=== PATIENT | male | born 1950 | race Caucasian/White ===

== ENCOUNTER 2018-01-25 09:39 | Inpatient (IN) | payer OTHER ==
[2018-01-18 16:36] LABS: CLARITY,URINE CLOUDY (Clear); COLOR,URINE YELLOW (Yellow); GLUCOSE, URINE NEGATIVE (Neg); KETONES,URINE NEGATIVE (Neg); LEUKOCYTE ESTERASE ,URINE NEGATIVE (Neg); NITRITES, URINE NEGATIVE (Neg); OCCULT BLOOD,URINE TRACE-INTACT (Neg); PROTEIN,URINE 100 mg/dl (Neg); UROBILINOGEN,URINE 0.2 E.U/dL (0.2-1.0)
[2018-01-18 16:39] LABS: UA COLLECTION TYPE CLN CATCH MIDSTREAM
[2018-01-18 16:39] LABS: BASOPHILS % (AUTO) 0.1 % (0-1); EOSINOPHILS # (AUTO) 0.3 X10'3 (0-0.9); EOSINOPHILS % (AUTO) 3.4 % (0-6); LYMPHOCYTES # (AUTO) 0.7 X10'3 (1.1-4.8); LYMPHOCYTES % (AUTO) 7.4 % (21-51); MEAN CORPUSCULAR HEMOGLOBIN 28.7 PG (27.0-31.0); MEAN CORPUSCULAR HGB CONC 33.6 % (33.0-36.5); MEAN CORPUSCULAR VOLUME 85.7 FL (78-98); MEAN PLATELET VOLUME 7.8 FL (7.4-10.4); MONOCYTES # (AUTO) 0.7 X10'3 (0-0.9); MONOCYTES % (AUTO) 7.3 % (2-12); NEUTROPHILS # (AUTO) 8.2 X10'3 (1.8-7.7); NEUTROPHILS % (AUTO) 81.8 % (42-75); PRE OP HEMOGLOBIN 14.1 g/dL (14.0-17.9); PRE OP PLATELET COUNT 281 X10'3 (140-440); RED CELL DISTRIBUTION WIDTH 14.3 % (11.5-14.5)
[2018-01-18 16:41] LABS: PRE OP PROTIME 10.2 SECONDS (9.0-12.0)
[2018-01-18 16:45] LABS: ALBUMIN 3.3 G/DL (3.4-5.0); ALBUMIN/GLOBULIN RATIO 0.8 (1.1-1.5); ALKALINE PHOSPHATASE 109 IU/L (46-116); BLOOD UREA NITROGEN 15 MG/DL (7-18); BUN/CREATININE RATIO 10.3 (5.4-32.0); CALCIUM 8.9 MG/DL (8.5-10.1); CHLORIDE 101 MMOL/L (99-107); CREATININE 1.46 MG/DL (0.60-1.10); PRE OP ALT 20 U/L (30-65); PRE OP ANION GAP 8 (8-16); PRE OP AST 11 U/L (10-37); PRE OP BILIRUB, TOTAL 0.8 MG/DL (0.0-1.0); PRE OP GLUCOSE 114 MG/DL (70-104); PRE OP POTASSIUM 3.7 MMOL/L (3.4-5.1); PRE OP SODIUM 136 MMOL/L (135-145); TOTAL PROTEIN 7.6 G/DL (6.4-8.2); eGFR 48 ML/MIN
[2018-01-18 16:53] LABS: MUCUS STRANDS NONE SEEN /LPF (Neg); SQUAMOUS EPITHELIAL CELL,UR FEW /LPF (FEW)
[2018-01-18 16:54] LABS: BACTERIA,URINE NONE SEEN /HPF (Neg); RBC,URINE 0-2 /HPF (0-2); WBC,URINE 0-4 /HPF (0-4)
[2018-01-25] VITALS (25 sets, daily range): BP systolic 89–170; BP diastolic 61–94
[~2018-01-25] VITALS: Ht 167.6 cm; Wt 112.4 kg
[~2018-01-25 09:39] MED LIST: ACET-812 PO; AMLO10TA PO; ATOR40TA PO; IBUP-1984 PO; LISI1TAB11 PO; NAPR220C15 PO; OMEGA XL PO; PROBIOTIC PO; acetaminophen 325mg tablet PO ONE; cefazolin/dext.iso 2gm/50ml 50 ML IV ONE; celeCOXIB 100mg capsule PO ONE; famotidine 20mg tablet PO ONE; gabapentin 300mg capsule PO ONE; metoclopramide 5 mg/ml inj IV ONE; oxyCODONE SR 10mg (sust. release) tab PO ONE; ringers solution, lacted 1,000 ML IV SCH; tranexamic acid inj. 1,000 MG in normal saline 100ml IV soln 90 ML IV ONE; vancomycin inj 1,500 MG in normal saline 300ml IV soln IV ONE
[2018-01-25] MEDS ORDERED: epiNEPHrine 1 mg/ml inj ONE (10:37)
[2018-01-25] MEDS ORDERED: ROPIVAcaine 0.5% (5mg/ml) 30ml vial ONE (10:37)
[2018-01-25] MEDS ORDERED: vancomycin 1,000mg inj ONE ×4 (10:37→15:49)
[2018-01-25] MEDS ORDERED: ketorolac trometh. 30mg/ml inj. ONE (10:37)
[2018-01-25] MEDS ORDERED: cloNIDine hcl/PF 100mcg/ml inj ONE (10:37)
[2018-01-25] MEDS ORDERED: metoclopramide 5 mg/ml inj IV ONE (10:45)
[2018-01-25] MEDS ORDERED: fentaNYL /PF 50mcg/ml 5ml ampule ONE (10:55)
[2018-01-25] MEDS ORDERED: propofol inj 20 ML IV ONE ×7 (10:55→15:56)
[2018-01-25] MEDS ORDERED: MIDAZolam 5mg/5ml vial ONE (10:55)
[2018-01-25] MEDS ORDERED: rocuronium 10mg/ml inj IV ONE (10:56)
[2018-01-25] MEDS ORDERED: magnesium hydroxide 30ml (MOM) UD suspension PO PRN (11:30)
[2018-01-25] MEDS ORDERED: bisacodyl 10mg suppository rectal RC PRN (11:30)
[2018-01-25] MEDS ORDERED: diphenhydrAMINE 25mg capsule PO PRN (11:30)
[2018-01-25] MEDS ORDERED: HYDROmorphone inj. 0.5 MG/0.5 ML DISP.SYRIN IV PRN ×4 (11:30→13:05)
[2018-01-25] MEDS ORDERED: acetaminophen 325mg tablet PO PRN (11:30)
[2018-01-25] MEDS ORDERED: ondansetron/PF 4mg/2ml inj IV PRN ×3 (11:30→13:10)
[2018-01-25] MEDS ORDERED: morphine sulfate /PF 0.5 MG/ML 10mL ampul ONE (11:47)
[2018-01-25] MEDS ORDERED: metoclopramide 5 mg/ml inj ONE (12:30)
[2018-01-25] MEDS ORDERED: ondansetron/PF 4mg/2ml inj ONE (12:30)
[2018-01-25] MEDS ORDERED: propofol inj 40 ML IV ONE (12:32)
[2018-01-25] MEDS ORDERED: succinylcholine 20mg/ml inj IV ONE (12:32)
[2018-01-25] MEDS ORDERED: metoprolol tartrate 1mg/ml inj IV ONE ×2 (13:01→14:59)
[2018-01-25] MEDS ORDERED: acetaminophen 1,000mg/100ml IV 100 ML IV PRN (13:05)
[2018-01-25] MEDS ORDERED: fentaNYL/PF 50MCG/1 ML 2ML syringe IV PRN ×2 (13:05)
[2018-01-25] MEDS ORDERED: ringers solution, lacted 1,000 ML IV SCH (13:05)
[2018-01-25] MEDS ORDERED: diphenhydrAMINE 50 mg/ml inj IV PRN (13:10)
[2018-01-25] MEDS ORDERED: naloxone 2mg/2ml inj 2 MG in normal saline 500ml IV soln 498 ML IV PRN (13:10)
[2018-01-25] MEDS ORDERED: albumin (Human) 5% 250ml 250 ML IV ONE ×2 (14:37→16:02)
[2018-01-25] MEDS ORDERED: ceFAZolin 1000mg inj ONE (14:46)
[2018-01-25] MEDS ORDERED: BUPIVAcaine/PF 2.5 mg/ml (0.25%) 30ml vial ONE (15:17)
[2018-01-25] MEDS ORDERED: phenylephrine 10mg/ml inj IV ONE (15:17)
[2018-01-25] MEDS ORDERED: ePHEDrine 50MG/ML INJ. ONE (17:34)
[2018-01-25] MEDS ORDERED: insulin regular, human 10 units/0.1 ml syringe IV ONE (17:45)
[2018-01-25] MEDS ORDERED: albuterol 2.5 MG/3 ML nebule NEB ONE (17:45)
[2018-01-25] MEDS ORDERED: midazolam 2 mg/2 ml injection ONE (17:59)
[2018-01-25] MEDS: potassium cl 20mEq in 1/2 NS 1,000 ML IV SCH ×2 (18:59→20:30)
[2018-01-25] MEDS: oxyCODONE/APAP 10/325mg tablet PO SCH ×3 (19:01→20:00)
[2018-01-25] MEDS: gabapentin 300mg capsule PO SCH ×2 (19:02→20:31)
[2018-01-25] MEDS: cefazolin/dext.iso 2gm/50ml 50 ML IV SCH (19:02)
[2018-01-25] MEDS: celeCOXIB 100mg capsule PO SCH (20:00)
[2018-01-25] MEDS: ascorbic acid 500mg tablet PO SCH (20:00)
[2018-01-25] MEDS: sennosides 8.6mg tablet PO SCH (20:31)
[2018-01-26] MEDS: cefazolin/dext.iso 2gm/50ml 50 ML IV SCH (00:16)
[2018-01-26 01:52] VITALS: BP 123/72
[2018-01-26] MEDS: potassium cl 20mEq in 1/2 NS 1,000 ML IV SCH ×2 (02:33→21:51)
[2018-01-26] MEDS: oxyCODONE/APAP 10/325mg tablet PO SCH ×6 (04:38→20:30)
[2018-01-26 05:54] LABS: BASOPHILS % (AUTO) 0.1 % (0-1); EOSINOPHILS # (AUTO) 0.5 X10'3 (0-0.9); EOSINOPHILS % (AUTO) 3.6 % (0-6); HEMATOCRIT 30.4 % (42.0-52.0); HEMOGLOBIN 10.1 g/dl (14.0-17.9); LYMPHOCYTES # (AUTO) 0.7 X10'3 (1.1-4.8); LYMPHOCYTES % (AUTO) 5.1 % (21-51); MEAN CORPUSCULAR HEMOGLOBIN 28.7 PG (27.0-31.0); MEAN CORPUSCULAR HGB CONC 33.2 % (33.0-36.5); MEAN CORPUSCULAR VOLUME 86.5 FL (78-98); MEAN PLATELET VOLUME 7.4 FL (7.4-10.4); MONOCYTES # (AUTO) 0.9 X10'3 (0-0.9); MONOCYTES % (AUTO) 6.2 % (2-12); NEUTROPHILS # (AUTO) 11.8 X10'3 (1.8-7.7); PLATELET COUNT 362 X10'3 (140-440); RED BLOOD COUNT 3.51 X10'6 (4.70-6.10); RED CELL DISTRIBUTION WIDTH 15.2 % (11.5-14.5); WHITE BLOOD COUNT 13.9 X10'3 (4.5-11.0)
[2018-01-26 06:28] LABS: ANION GAP 13 (8-16); CHLORIDE 104 MMOL/L (99-107); POTASSIUM 3.6 MMOL/L (3.5-5.1); SODIUM 141 MMOL/L (135-145); TOTAL CARBON DIOXIDE 23.8 MMOL/L (24-32)
[2018-01-26 07:00] VITALS: BP 128/75
[2018-01-26] MEDS ORDERED: OMEGA 300 MG PO SCH (08:00)
[2018-01-26] MEDS: aspirin 325mg tablet PO SCH (08:24)
[2018-01-26] MEDS: ascorbic acid 500mg tablet PO SCH ×2 (08:24→20:30)
[2018-01-26] MEDS: celeCOXIB 100mg capsule PO SCH ×2 (08:24→20:30)
[2018-01-26] MEDS: amLODIPine 5mg tablet PO SCH (08:24)
[2018-01-26] MEDS: atorvastatin 20mg tablet PO SCH (08:24)
[2018-01-26] MEDS: lisinopril 20mg tablet PO SCH (08:24)
[2018-01-26] MEDS: lactobacillus rhamnosus 10,000 MMU CELLS/CAPSULE PO SCH ×2 (08:25→20:30)
[2018-01-26] MEDS: gabapentin 300mg capsule PO SCH ×3 (08:25→20:30)
[2018-01-26] MEDS: multivitamins, therapeutics tablet PO SCH (08:25)
[2018-01-26] MEDS: HYDROchlorothiazide 12.5mg capsule PO SCH (08:25)
[2018-01-26] MEDS: oxyCODONE/APAP 10/325mg tablet PO PRN ×2 (09:04→13:40)
[2018-01-26] MEDS: NUT.TX.GLUC.INTOLER,LAC-FR,REG (BOOST GLUCOSE CONTROL) 237 ML PO SCH ×2 (13:00→18:00)
[2018-01-26] MEDS ORDERED: normal saline 1000ml 1,000 ML IV ONE ×3 (15:40→23:35)
[2018-01-26 18:00] VITALS: BP 94/51
[2018-01-26] MEDS: sennosides 8.6mg tablet PO SCH (21:00)
[2018-01-26] MEDS ORDERED: albumin (Human) 5% 250 ML IV solution IV STA (21:51)
[2018-01-26 22:00] VITALS: BP 94/37
[2018-01-26 22:25] LABS: BASOPHILS % (AUTO) 0 % (0-1); EOSINOPHILS # (AUTO) 0.4 X10'3 (0-0.9); EOSINOPHILS % (AUTO) 1.8 % (0-6); HEMATOCRIT 30.3 % (42.0-52.0); HEMOGLOBIN 10.1 g/dl (14.0-17.9); LYMPHOCYTES # (AUTO) 1.1 X10'3 (1.1-4.8); MEAN CORPUSCULAR HEMOGLOBIN 28.8 PG (27.0-31.0); MEAN CORPUSCULAR HGB CONC 33.3 % (33.0-36.5); MEAN CORPUSCULAR VOLUME 86.5 FL (78-98); MEAN PLATELET VOLUME 7.7 FL (7.4-10.4); MONOCYTES # (AUTO) 1.1 X10'3 (0-0.9); MONOCYTES % (AUTO) 5.3 % (2-12); NEUTROPHILS # (AUTO) 18.7 X10'3 (1.8-7.7); NEUTROPHILS % (AUTO) 87.9 % (42-75); PLATELET COUNT 331 X10'3 (140-440); RED BLOOD COUNT 3.51 X10'6 (4.70-6.10); RED CELL DISTRIBUTION WIDTH 15.7 % (11.5-14.5); WHITE BLOOD COUNT 21.3 X10'3 (4.5-11.0)
[2018-01-26 22:49] LABS: ALANINE AMINOTRANSFERASE 61 U/L (12-78); ALBUMIN 2.3 G/DL (3.4-5.0); ALBUMIN/GLOBULIN RATIO 0.5 (1.1-1.5); ALKALINE PHOSPHATASE 156 IU/L (46-116); ANION GAP 18 (8-16); ASPARTATE AMINO TRANSFERASE 101 U/L (10-37); BILIRUBIN,TOTAL 0.9 MG/DL (0.1-1.0); BLOOD UREA NITROGEN 36 MG/DL (7-18); BUN/CREATININE RATIO 8.3 (5.4-32.0); CALCIUM 8.3 MG/DL (8.5-10.1); CHLORIDE 103 MMOL/L (99-107); CREATININE 4.32 MG/DL (0.60-1.10); GLUCOSE 127 MG/DL (70-104); POTASSIUM 4.4 MMOL/L (3.5-5.1); SODIUM 141 MMOL/L (135-145); TOTAL CARBON DIOXIDE 20.3 MMOL/L (24-32); TOTAL PROTEIN 6.6 G/DL (6.4-8.2); eGFR 14 ML/MIN
[2018-01-26] MEDS: normal saline 1000ml 1,000 ML IV SCH (22:49)
[2018-01-26 23:00] VITALS: BP 93/41
[2018-01-26] MEDS ORDERED: vancomycin/NS 1 GM ADD-VANTAGE 250 ML IV ONE (23:30)
[2018-01-26] MEDS ORDERED: LIDOcaine 2% 10ml TOPICAL JELLY (Urojet) MM ONE (23:55)
[2018-01-27] VITALS (26 sets, daily range): BP systolic 64–120; BP diastolic 43–81
[2018-01-27] MEDS ORDERED: piperacillin-tazo 2.25gm/50ml 50 ML IV ONE (01:22)
[2018-01-27] MEDS ORDERED: piperacillin-tazo 2.25gm/50ml 50 ML IV SCH (02:00)
[2018-01-27] MEDS: NORepinephrine 8mg/ 250ml NS 250 ML IV PRN ×2 (02:06→19:22)
[2018-01-27] MEDS: potassium cl 20mEq in 1/2 NS 1,000 ML IV SCH (02:14)
[2018-01-27] MEDS: oxyCODONE/APAP 10/325mg tablet PO SCH ×6 (02:35→21:53)
[2018-01-27 03:16] LABS: CLARITY,URINE CLOUDY (Clear); COLOR,URINE YELLOW (Yellow); GLUCOSE, URINE NEGATIVE (Neg); KETONES,URINE NEGATIVE (Neg); LEUKOCYTE ESTERASE ,URINE NEGATIVE (Neg); NITRITES, URINE NEGATIVE (Neg); OCCULT BLOOD,URINE MODERATE (Neg); PH,URINE 5.5 (4.8-8.0); PROTEIN,URINE 100 mg/dl (Neg)
[2018-01-27 04:45] LABS: UA COLLECTION TYPE FOLEY CATH
[2018-01-27 06:06] LABS: BASOPHILS # (AUTO) 0.1 X10'3 (0-0.2); BASOPHILS % (AUTO) 0.6 % (0-1); EOSINOPHILS # (AUTO) 0.7 X10'3 (0-0.9); EOSINOPHILS % (AUTO) 3.8 % (0-6); HEMATOCRIT 27.9 % (42.0-52.0); HEMOGLOBIN 9.2 g/dl (14.0-17.9); LYMPHOCYTES # (AUTO) 1.5 X10'3 (1.1-4.8); LYMPHOCYTES % (AUTO) 8.2 % (21-51); MEAN CORPUSCULAR HEMOGLOBIN 28.4 PG (27.0-31.0); MEAN CORPUSCULAR HGB CONC 32.8 % (33.0-36.5); MEAN CORPUSCULAR VOLUME 86.5 FL (78-98); MEAN PLATELET VOLUME 7.8 FL (7.4-10.4); MONOCYTES % (AUTO) 5.6 % (2-12); NEUTROPHILS # (AUTO) 14.9 X10'3 (1.8-7.7); NEUTROPHILS % (AUTO) 81.8 % (42-75); PLATELET COUNT 337 X10'3 (140-440); RED BLOOD COUNT 3.23 X10'6 (4.70-6.10); RED CELL DISTRIBUTION WIDTH 15.8 % (11.5-14.5); WHITE BLOOD COUNT 18.3 X10'3 (4.5-11.0)
[2018-01-27 06:38] LABS: ALANINE AMINOTRANSFERASE 105 U/L (12-78); ALBUMIN 2.4 G/DL (3.4-5.0); ALBUMIN/GLOBULIN RATIO 0.6 (1.1-1.5); ALKALINE PHOSPHATASE 150 IU/L (46-116); ANION GAP 14 (8-16); ASPARTATE AMINO TRANSFERASE 306 U/L (10-37); BLOOD UREA NITROGEN 41 MG/DL (7-18); BUN/CREATININE RATIO 9.3 (5.4-32.0); CALCIUM 7.8 MG/DL (8.5-10.1); CHLORIDE 105 MMOL/L (99-107); CREATININE 4.43 MG/DL (0.60-1.10); GLUCOSE 121 MG/DL (70-104); SODIUM 142 MMOL/L (135-145); TOTAL CARBON DIOXIDE 22.8 MMOL/L (24-32); TOTAL PROTEIN 6.5 G/DL (6.4-8.2); eGFR 13 ML/MIN
[2018-01-27 07:08] LABS: UA EOSINOPHILS NO EOS /HPF
[2018-01-27 07:17] LABS: AMORPHOUS URATES 2+; BACTERIA,URINE FEW /HPF (Neg); HYALINE CASTS 0-3 /LPF (NEGATIVE); SQUAMOUS EPITHELIAL CELL,UR NONE SEEN /LPF (FEW); TRANSITIONAL EPI CELLS,URINE FEW /HPF; WBC,URINE 0-4 /HPF (0-4)
[2018-01-27 07:56] LABS: VANCOMYCIN,RANDOM 43.6 UG/ML
[2018-01-27] MEDS: amLODIPine 5mg tablet PO SCH (08:00)
[2018-01-27] MEDS: HYDROchlorothiazide 12.5mg capsule PO SCH (08:00)
[2018-01-27] MEDS: NUT.TX.GLUC.INTOLER,LAC-FR,REG (BOOST GLUCOSE CONTROL) 237 ML PO SCH ×3 (08:00→18:00)
[2018-01-27] MEDS: celeCOXIB 100mg capsule PO SCH ×2 (08:00→21:58)
[2018-01-27] MEDS: lisinopril 20mg tablet PO SCH (08:00)
[2018-01-27] MEDS: aspirin 325mg tablet PO SCH (11:16)
[2018-01-27] MEDS: atorvastatin 20mg tablet PO SCH (11:17)
[2018-01-27] MEDS: multivitamins, therapeutics tablet PO SCH (11:17)
[2018-01-27] MEDS: ascorbic acid 500mg tablet PO SCH ×2 (11:17→21:53)
[2018-01-27] MEDS: lactobacillus rhamnosus 10,000 MMU CELLS/CAPSULE PO SCH ×2 (11:17→21:55)
[2018-01-27] MEDS: gabapentin 300mg capsule PO SCH ×2 (11:17→15:01)
[2018-01-27] MEDS: cefepime 1GM/NS ADD-VANTAGE 100 ML IV SCH (11:18)
[2018-01-27] MEDS: normal saline 1000ml 1,000 ML IV SCH ×2 (15:02→19:05)
[2018-01-27] MEDS ORDERED: heparin 10,000 units/1 ML INJ IV ONE (17:35)
[2018-01-27] MEDS ORDERED: heparin 10,000 units/1 ML INJ IV PRN (17:35)
[2018-01-27 20:41] LABS: INR 1.1 INR; PARTIAL THROMBOPLASTIN TIME 29 SECONDS (22-32); PROTHROMBIN TIME 11.8 SECONDS (9.0-12.0)
[2018-01-27] MEDS: gabapentin 100mg capsule PO SCH (21:54)
[2018-01-27] MEDS: sennosides 8.6mg tablet PO SCH (21:54)
[2018-01-28] VITALS (41 sets, daily range): BP systolic 70–142; BP diastolic 42–80
[2018-01-28] MEDS: normal saline 1000ml 1,000 ML IV SCH ×4 (02:01→19:39)
[2018-01-28] MEDS ORDERED: VANCOMYCIN LEVEL IV SCH (03:00)
[2018-01-28 05:31] LABS: BASOPHILS % (AUTO) 0.3 % (0-1); EOSINOPHILS # (AUTO) 0.5 X10'3 (0-0.9); HEMATOCRIT 26.8 % (42.0-52.0); HEMOGLOBIN 8.9 g/dl (14.0-17.9); LYMPHOCYTES # (AUTO) 1.2 X10'3 (1.1-4.8); LYMPHOCYTES % (AUTO) 6.7 % (21-51); MEAN CORPUSCULAR HEMOGLOBIN 28.7 PG (27.0-31.0); MEAN CORPUSCULAR HGB CONC 33.2 % (33.0-36.5); MEAN CORPUSCULAR VOLUME 86.3 FL (78-98); MEAN PLATELET VOLUME 7.8 FL (7.4-10.4); MONOCYTES # (AUTO) 1.1 X10'3 (0-0.9); MONOCYTES % (AUTO) 6.1 % (2-12); NEUTROPHILS # (AUTO) 14.8 X10'3 (1.8-7.7); NEUTROPHILS % (AUTO) 83.9 % (42-75); PLATELET COUNT 330 X10'3 (140-440); WHITE BLOOD COUNT 17.6 X10'3 (4.5-11.0)
[2018-01-28] MEDS ORDERED: vancomycin/NS 1 GM ADD-VANTAGE 250 ML IV PRN (06:00)
[2018-01-28 06:23] LABS: ALBUMIN 2.1 G/DL (3.4-5.0); ANION GAP 17 (8-16); BLOOD UREA NITROGEN 52 MG/DL (7-18); CALCIUM 7.9 MG/DL (8.5-10.1); CHLORIDE 105 MMOL/L (99-107); CREATININE 6.46 MG/DL (0.60-1.10); GLUCOSE 106 MG/DL (70-104); POTASSIUM 4.4 MMOL/L (3.5-5.1); SODIUM 141 MMOL/L (135-145); TOTAL CARBON DIOXIDE 19.5 MMOL/L (24-32); VANCOMYCIN,RANDOM 33.6 UG/ML; eGFR 9 ML/MIN
[2018-01-28] MEDS: oxyCODONE/APAP 10/325mg tablet PO SCH ×3 (07:00→08:00)
[2018-01-28] MEDS: NORepinephrine 8mg/ 250ml NS 250 ML IV PRN ×2 (07:23→19:12)
[2018-01-28] MEDS: celeCOXIB 100mg capsule PO SCH ×2 (08:00→20:00)
[2018-01-28] MEDS: NUT.TX.GLUC.INTOLER,LAC-FR,REG (BOOST GLUCOSE CONTROL) 237 ML PO SCH ×3 (08:00→18:00)
[2018-01-28] MEDS: multivitamins, therapeutics tablet PO SCH (08:00)
[2018-01-28] MEDS: lisinopril 20mg tablet PO SCH (08:00)
[2018-01-28] MEDS: atorvastatin 20mg tablet PO SCH (08:00)
[2018-01-28] MEDS: ascorbic acid 500mg tablet PO SCH ×2 (08:00→20:00)
[2018-01-28] MEDS: lactobacillus rhamnosus 10,000 MMU CELLS/CAPSULE PO SCH ×2 (08:00→20:00)
[2018-01-28] MEDS: amLODIPine 5mg tablet PO SCH (08:00)
[2018-01-28] MEDS: HYDROchlorothiazide 12.5mg capsule PO SCH (08:00)
[2018-01-28] MEDS: gabapentin 100mg capsule PO SCH ×3 (08:00→21:00)
[2018-01-28] MEDS: aspirin 325mg tablet PO SCH (08:30)
[2018-01-28] MEDS: cefepime 1GM/NS ADD-VANTAGE 100 ML IV SCH (09:31)
[2018-01-28] MEDS ORDERED: sodium bicarbonate (8.4%) 1 mEq/ml syringe ONE (20:03)
[2018-01-28] MEDS ORDERED: sodium bicarbonate (8.4%) 1 mEq/ml syringe IV ONE (20:05)
[2018-01-28] MEDS: sodium bicarbonate (8.4%) inj. 150 MEQ in dextrose 5%-water 1,000 ML IV SCH (20:05)
[2018-01-28] MEDS: sennosides 8.6mg tablet PO SCH (21:00)
[2018-01-28] MEDS ORDERED: albumin (Human) 5% 250ml 500 ML IV ONE (22:45)
[2018-01-28 22:47] LABS: BASOPHILS % (AUTO) 0.2 % (0-1); EOSINOPHILS # (AUTO) 0.2 X10'3 (0-0.9); EOSINOPHILS % (AUTO) 1.3 % (0-6); HEMATOCRIT 27.6 % (42.0-52.0); LYMPHOCYTES # (AUTO) 0.8 X10'3 (1.1-4.8); LYMPHOCYTES % (AUTO) 4.9 % (21-51); MEAN CORPUSCULAR HEMOGLOBIN 28.5 PG (27.0-31.0); MEAN CORPUSCULAR HGB CONC 32.8 % (33.0-36.5); MEAN CORPUSCULAR VOLUME 86.9 FL (78-98); MEAN PLATELET VOLUME 7.5 FL (7.4-10.4); MONOCYTES # (AUTO) 0.9 X10'3 (0-0.9); MONOCYTES % (AUTO) 5.2 % (2-12); NEUTROPHILS % (AUTO) 88.4 % (42-75); PLATELET COUNT 358 X10'3 (140-440); RED BLOOD COUNT 3.17 X10'6 (4.70-6.10); RED CELL DISTRIBUTION WIDTH 16.8 % (11.5-14.5)
[2018-01-28 23:07] LABS: ALANINE AMINOTRANSFERASE 45 U/L (12-78); ALBUMIN 1.9 G/DL (3.4-5.0); ALBUMIN/GLOBULIN RATIO 0.5 (1.1-1.5); ALKALINE PHOSPHATASE 152 IU/L (46-116); ANION GAP 21 (8-16); ASPARTATE AMINO TRANSFERASE 107 U/L (10-37); BILIRUBIN,TOTAL 0.6 MG/DL (0.1-1.0); BLOOD UREA NITROGEN 58 MG/DL (7-18); CALCIUM 7.7 MG/DL (8.5-10.1); CHLORIDE 106 MMOL/L (99-107); CREATININE 8.28 MG/DL (0.60-1.10); GLUCOSE 132 MG/DL (70-104); MAGNESIUM 2.2 MG/DL (1.5-2.4); PHOSPHORUS 8.6 MG/DL (2.3-4.5); SODIUM 143 MMOL/L (135-145); eGFR 7 ML/MIN
[2018-01-28] MEDS ORDERED: albumin (Human) 5% 250 ML IV solution IV STA (23:07)
[2018-01-28] MEDS ORDERED: NORMAL SALINE IV SCH (23:15)
[2018-01-28] MEDS ORDERED: SODIUM BICARBONATE IV SCH (23:15)
[2018-01-29] VITALS (23 sets, daily range): BP systolic 95–135; BP diastolic 51–69
[2018-01-29] MEDS: normal saline 1000ml 1,000 ML IV SCH ×4 (02:19→22:19)
[2018-01-29 02:41] LABS: TOTAL CELLS COUNTED 100
[2018-01-29 02:42] LABS: ANISOCYTOSIS 1+; PLATELET ESTIMATE NORMAL
[2018-01-29 02:44] LABS: BURR CELLS 1+
[2018-01-29 02:45] LABS: BASOPHILS % (AUTO) 0.1 % (0-1); EOSINOPHILS # (AUTO) 0.4 X10'3 (0-0.9); EOSINOPHILS % (AUTO) 2.5 % (0-6); HEMATOCRIT 27.2 % (42.0-52.0); HEMOGLOBIN 8.9 g/dl (14.0-17.9); LYMPHOCYTES # (AUTO) 0.8 X10'3 (1.1-4.8); MEAN CORPUSCULAR HEMOGLOBIN 28.7 PG (27.0-31.0); MEAN CORPUSCULAR HGB CONC 32.9 % (33.0-36.5); MEAN CORPUSCULAR VOLUME 87.2 FL (78-98); MEAN PLATELET VOLUME 7.5 FL (7.4-10.4); MONOCYTES # (AUTO) 0.8 X10'3 (0-0.9); MONOCYTES % (AUTO) 4.9 % (2-12); NEUTROPHILS # (AUTO) 14.7 X10'3 (1.8-7.7); NEUTROPHILS % (AUTO) 87.5 % (42-75); PLATELET COUNT 351 X10'3 (140-440); RED BLOOD COUNT 3.12 X10'6 (4.70-6.10); RED CELL DISTRIBUTION WIDTH 16.8 % (11.5-14.5); WHITE BLOOD COUNT 16.8 X10'3 (4.5-11.0)
[2018-01-29 03:02] LABS: ALANINE AMINOTRANSFERASE 46 U/L (12-78); ALBUMIN 2.2 G/DL (3.4-5.0); ALBUMIN/GLOBULIN RATIO 0.6 (1.1-1.5); ALKALINE PHOSPHATASE 148 IU/L (46-116); ANION GAP 18 (8-16); ASPARTATE AMINO TRANSFERASE 94 U/L (10-37); BILIRUBIN,TOTAL 0.6 MG/DL (0.1-1.0); BLOOD UREA NITROGEN 58 MG/DL (7-18); BUN/CREATININE RATIO 7.1 (5.4-32.0); CALCIUM 7.6 MG/DL (8.5-10.1); CHLORIDE 105 MMOL/L (99-107); CREATININE 8.14 MG/DL (0.60-1.10); GLUCOSE 159 MG/DL (70-104); MAGNESIUM 2.2 MG/DL (1.5-2.4); POTASSIUM 4.5 MMOL/L (3.5-5.1); SODIUM 142 MMOL/L (135-145); TOTAL CARBON DIOXIDE 18.8 MMOL/L (24-32); TOTAL PROTEIN 6.1 G/DL (6.4-8.2); VANCOMYCIN,RANDOM 31.6 UG/ML; eGFR 7 ML/MIN
[2018-01-29] MEDS: sodium bicarbonate (8.4%) inj. 150 MEQ in dextrose 5%-water 1,000 ML IV SCH ×3 (04:38→19:23)
[2018-01-29] MEDS: NORepinephrine 8mg/ 250ml NS 250 ML IV PRN ×2 (04:39→09:56)
[2018-01-29] MEDS: atorvastatin 20mg tablet PO SCH (08:00)
[2018-01-29] MEDS: NUT.TX.GLUC.INTOLER,LAC-FR,REG (BOOST GLUCOSE CONTROL) 237 ML PO SCH ×3 (08:00→18:00)
[2018-01-29] MEDS: amLODIPine 5mg tablet PO SCH (08:00)
[2018-01-29] MEDS: lisinopril 20mg tablet PO SCH (08:00)
[2018-01-29] MEDS: multivitamins, therapeutics tablet PO SCH (08:00)
[2018-01-29] MEDS: ascorbic acid 500mg tablet PO SCH ×2 (08:00→20:00)
[2018-01-29] MEDS: celeCOXIB 100mg capsule PO SCH ×2 (08:00→20:00)
[2018-01-29] MEDS: gabapentin 100mg capsule PO SCH ×3 (08:00→21:00)
[2018-01-29] MEDS: HYDROchlorothiazide 12.5mg capsule PO SCH (08:00)
[2018-01-29] MEDS: lactobacillus rhamnosus 10,000 MMU CELLS/CAPSULE PO SCH ×2 (08:00→20:00)
[2018-01-29] MEDS: aspirin 325mg tablet PO SCH (08:30)
[2018-01-29] MEDS: cefepime 1GM/NS ADD-VANTAGE 100 ML IV SCH (09:53)
[2018-01-29] MEDS: sennosides 8.6mg tablet PO SCH (21:00)
[2018-01-30] VITALS (23 sets, daily range): BP systolic 91–152; BP diastolic 54–80
[2018-01-30] MEDS ORDERED: HYDROmorphone inj. 0.5 MG/0.5 ML DISP.SYRIN IV PRN
[2018-01-30] MEDS: NORepinephrine 8mg/ 250ml NS 250 ML IV PRN (01:04)
[2018-01-30] MEDS: sodium bicarbonate (8.4%) inj. 150 MEQ in dextrose 5%-water 1,000 ML IV SCH ×3 (02:45→18:05)
[2018-01-30 05:07] LABS: BASOPHILS # (AUTO) 0.1 X10'3 (0-0.2); BASOPHILS % (AUTO) 0.5 % (0-1); EOSINOPHILS # (AUTO) 0.6 X10'3 (0-0.9); EOSINOPHILS % (AUTO) 4.1 % (0-6); HEMATOCRIT 28.1 % (42.0-52.0); HEMOGLOBIN 9.2 g/dl (14.0-17.9); LYMPHOCYTES # (AUTO) 0.6 X10'3 (1.1-4.8); LYMPHOCYTES % (AUTO) 4.1 % (21-51); MEAN CORPUSCULAR HEMOGLOBIN 28.3 PG (27.0-31.0); MEAN CORPUSCULAR HGB CONC 32.8 % (33.0-36.5); MEAN CORPUSCULAR VOLUME 86.2 FL (78-98); MEAN PLATELET VOLUME 7.9 FL (7.4-10.4); MONOCYTES # (AUTO) 1.3 X10'3 (0-0.9); MONOCYTES % (AUTO) 8.8 % (2-12); NEUTROPHILS # (AUTO) 12.4 X10'3 (1.8-7.7); NEUTROPHILS % (AUTO) 82.5 % (42-75); PLATELET COUNT 371 X10'3 (140-440); RED BLOOD COUNT 3.26 X10'6 (4.70-6.10); RED CELL DISTRIBUTION WIDTH 16.2 % (11.5-14.5)
[2018-01-30 05:37] LABS: ALBUMIN 1.7 G/DL (3.4-5.0); ANION GAP 12 (8-16); BLOOD UREA NITROGEN 57 MG/DL (7-18); BUN/CREATININE RATIO 7.2 (5.4-32.0); CALCIUM 7.7 MG/DL (8.5-10.1); CHLORIDE 107 MMOL/L (99-107); CREATININE 7.94 MG/DL (0.60-1.10); GLUCOSE 135 MG/DL (70-104); POTASSIUM 3.5 MMOL/L (3.5-5.1); SODIUM 147 MMOL/L (135-145); eGFR 7 ML/MIN
[2018-01-30] MEDS: lisinopril 20mg tablet PO SCH (08:00)
[2018-01-30] MEDS: NUT.TX.GLUC.INTOLER,LAC-FR,REG (BOOST GLUCOSE CONTROL) 237 ML PO SCH ×3 (08:00→18:00)
[2018-01-30] MEDS: HYDROchlorothiazide 12.5mg capsule PO SCH (08:00)
[2018-01-30] MEDS: amLODIPine 5mg tablet PO SCH (08:00)
[2018-01-30] MEDS: multivitamins, therapeutics tablet PO SCH (08:00)
[2018-01-30] MEDS: gabapentin 100mg capsule PO SCH ×3 (08:00→20:26)
[2018-01-30] MEDS: lactobacillus rhamnosus 10,000 MMU CELLS/CAPSULE PO SCH ×2 (08:00→20:00)
[2018-01-30] MEDS: ascorbic acid 500mg tablet PO SCH ×2 (08:00→20:00)
[2018-01-30] MEDS: celeCOXIB 100mg capsule PO SCH ×2 (08:00→20:00)
[2018-01-30] MEDS: atorvastatin 20mg tablet PO SCH (08:00)
[2018-01-30] MEDS: aspirin 325mg tablet PO SCH (08:30)
[2018-01-30] MEDS: cefepime 1GM/NS ADD-VANTAGE 100 ML IV SCH (08:55)
[2018-01-30] MEDS: morphine 4 MG/ML inj SYRINge IV PRN ×2 (14:23→18:55)
[2018-01-30] MEDS ORDERED: heparin 10,000 units/1 ML INJ IV ONE (15:35)
[2018-01-30] MEDS ORDERED: heparin 10,000 units/1 ML INJ IV PRN (15:35)
[2018-01-30 16:14] LABS: BASOPHILS % (AUTO) 0.1 % (0-1); EOSINOPHILS # (AUTO) 0.5 X10'3 (0-0.9); EOSINOPHILS % (AUTO) 3.5 % (0-6); HEMOGLOBIN 9.3 g/dl (14.0-17.9); LYMPHOCYTES # (AUTO) 0.9 X10'3 (1.1-4.8); LYMPHOCYTES % (AUTO) 6.4 % (21-51); MEAN CORPUSCULAR HEMOGLOBIN 28.3 PG (27.0-31.0); MEAN CORPUSCULAR HGB CONC 33.4 % (33.0-36.5); MEAN CORPUSCULAR VOLUME 84.9 FL (78-98); MEAN PLATELET VOLUME 7.5 FL (7.4-10.4); MONOCYTES # (AUTO) 1.2 X10'3 (0-0.9); MONOCYTES % (AUTO) 8.5 % (2-12); NEUTROPHILS # (AUTO) 11.7 X10'3 (1.8-7.7); NEUTROPHILS % (AUTO) 81.5 % (42-75); PLATELET COUNT 379 X10'3 (140-440); RED BLOOD COUNT 3.29 X10'6 (4.70-6.10); RED CELL DISTRIBUTION WIDTH 15.8 % (11.5-14.5); WHITE BLOOD COUNT 14.4 X10'3 (4.5-11.0)
[2018-01-30 16:31] LABS: INR 1.4 INR
[2018-01-30] MEDS: sennosides 8.6mg tablet PO SCH (20:26)
[2018-01-31] VITALS (20 sets, daily range): BP systolic 82–202; BP diastolic 56–88
[2018-01-31] MEDS: sodium bicarbonate (8.4%) inj. 150 MEQ in dextrose 5%-water 1,000 ML IV SCH (01:45)
[2018-01-31] MEDS: morphine 4 MG/ML inj SYRINge IV PRN (02:27)
[2018-01-31] MEDS: normal saline 1000ml 1,000 ML IV SCH (04:31)
[2018-01-31 04:38] LABS: BASOPHILS # (AUTO) 0.1 X10'3 (0-0.2); BASOPHILS % (AUTO) 0.4 % (0-1); EOSINOPHILS # (AUTO) 0.5 X10'3 (0-0.9); EOSINOPHILS % (AUTO) 3.9 % (0-6); HEMATOCRIT 28.4 % (42.0-52.0); HEMOGLOBIN 9.4 g/dl (14.0-17.9); LYMPHOCYTES % (AUTO) 7.7 % (21-51); MEAN CORPUSCULAR HEMOGLOBIN 28.3 PG (27.0-31.0); MEAN CORPUSCULAR HGB CONC 33.3 % (33.0-36.5); MEAN PLATELET VOLUME 7.9 FL (7.4-10.4); MONOCYTES # (AUTO) 1.2 X10'3 (0-0.9); MONOCYTES % (AUTO) 8.7 % (2-12); NEUTROPHILS # (AUTO) 10.7 X10'3 (1.8-7.7); NEUTROPHILS % (AUTO) 79.3 % (42-75); PLATELET COUNT 403 X10'3 (140-440); RED BLOOD COUNT 3.34 X10'6 (4.70-6.10); RED CELL DISTRIBUTION WIDTH 15.7 % (11.5-14.5); WHITE BLOOD COUNT 13.5 X10'3 (4.5-11.0)
[2018-01-31 05:17] LABS: ALBUMIN 1.7 G/DL (3.4-5.0); ANION GAP 14 (8-16); BLOOD UREA NITROGEN 56 MG/DL (7-18); BUN/CREATININE RATIO 8.4 (5.4-32.0); CALCIUM 8.1 MG/DL (8.5-10.1); CHLORIDE 111 MMOL/L (99-107); CREATININE 6.69 MG/DL (0.60-1.10); GLUCOSE 106 MG/DL (70-104); POTASSIUM 3.7 MMOL/L (3.5-5.1); SODIUM 150 MMOL/L (135-145); TOTAL CARBON DIOXIDE 25.5 MMOL/L (24-32); eGFR 8 ML/MIN
[2018-01-31] MEDS: sodium chloride 0.45% 1,000 ML IV SCH ×3 (05:39→21:30)
[2018-01-31] MEDS: amLODIPine 5mg tablet PO SCH (08:00)
[2018-01-31] MEDS: atorvastatin 20mg tablet PO SCH (08:00)
[2018-01-31] MEDS: celeCOXIB 100mg capsule PO SCH ×2 (08:00→20:05)
[2018-01-31] MEDS: gabapentin 100mg capsule PO SCH ×3 (08:00→20:07)
[2018-01-31] MEDS: HYDROchlorothiazide 12.5mg capsule PO SCH (08:00)
[2018-01-31] MEDS: ascorbic acid 500mg tablet PO SCH ×2 (08:00→20:07)
[2018-01-31] MEDS: multivitamins, therapeutics tablet PO SCH (08:00)
[2018-01-31] MEDS: NUT.TX.GLUC.INTOLER,LAC-FR,REG (BOOST GLUCOSE CONTROL) 237 ML PO SCH ×3 (08:00→18:00)
[2018-01-31] MEDS: lisinopril 20mg tablet PO SCH (08:00)
[2018-01-31] MEDS: lactobacillus rhamnosus 10,000 MMU CELLS/CAPSULE PO SCH ×2 (08:00→20:07)
[2018-01-31] MEDS: aspirin 325mg tablet PO SCH (08:30)
[2018-01-31] MEDS ORDERED: LORazepam 2 mg/ml vial IM ONE (10:20)
[2018-01-31] MEDS ORDERED: LORazepam 2 mg/ml vial ONE (10:30)
[2018-01-31] MEDS ORDERED: cefepime inj. 1 GM in dextrose 5%-water 50ml 50 ML IV SCH (10:40)
[2018-01-31] MEDS ORDERED: LORazepam 2 mg/ml vial IV ONE (11:00)
[2018-01-31 11:38] LABS: ABG BASE EXCESS 1.2 mmol/L (-2.0-3.0); ABG PCO2 (T) 57.9 mmHg (35.0-48.0); ABG PH (T) 7.306 (7.350-7.450); ABG PO2 (T) 94.9 mmHg (83-108); ALLEN'S TEST Positive; FCOHb 0.3 % (0.5-1.5); FLOW 10 L/min; FMetHb 0.1 % (0.3-1.12); FO2Hb 95.6 % (94-100); PATIENT TEMPERATURE 37.7; RESPIRATORY RATE (OBSERVED) 15 b/min; TOTAL HEMOGLOBIN 10.4 G/dl (14.0-18.0)
[2018-01-31 11:38] LABS: ABG BASE EXCESS -15.9 mmol/L (-2.0-3.0); ABG HCO3 14.7 mmol/L (22.0-26.0); ABG OXYGEN SATURATION 96.2 % (95-98); ABG PCO2 (T) 58.1 mmHg (35.0-48.0); ABG PH (T) 7.022 (7.350-7.450); ABG PO2 (T) 98.9 mmHg (83-108); FCOHb 0.3 % (0.5-1.5); FLOW 3 L/min; FMetHb 0.1 % (0.3-1.12); FO2Hb 95.8 % (94-100); PATIENT TEMPERATURE 37.2; TOTAL HEMOGLOBIN 10.2 G/dl (14.0-18.0)
[2018-01-31 11:38] LABS: ABG BASE EXCESS -14.7 mmol/L (-2.0-3.0); ABG HCO3 14.6 mmol/L (22.0-26.0); ABG OXYGEN SATURATION 95.8 % (95-98); ABG PCO2 (T) 49.3 mmHg (35.0-48.0); ABG PH (T) 7.088 (7.350-7.450); ABG PO2 (T) 89.7 mmHg (83-108); FCOHb 0.3 % (0.5-1.5); FMetHb 0.3 % (0.3-1.12); FO2Hb 95.2 % (94-100); RESPIRATORY RATE 20 b/min; RESPIRATORY RATE (OBSERVED) 24 b/min; TOTAL HEMOGLOBIN 9.9 G/dl (14.0-18.0)
[2018-01-31 11:38] LABS: ABG BASE EXCESS -0.7 mmol/L (-2.0-3.0); ABG HCO3 25.7 mmol/L (22.0-26.0); ABG OXYGEN SATURATION 96.9 % (95-98); ABG PCO2 (T) 50.5 mmHg (35.0-48.0); ABG PH (T) 7.324 (7.350-7.450); ABG PO2 (T) 98.3 mmHg (83-108); FCOHb 0.3 % (0.5-1.5); FLOW 6 L/min; FMetHb 0.3 % (0.3-1.12); FO2Hb 96.3 % (94-100); TOTAL HEMOGLOBIN 10.2 G/dl (14.0-18.0)
[2018-01-31 11:38] LABS: ABG BASE EXCESS -11.3 mmol/L (-2.0-3.0); ABG HCO3 17.2 mmol/L (22.0-26.0); ABG OXYGEN SATURATION 94.9 % (95-98); ABG PCO2 (T) 50.8 mmHg (35.0-48.0); ABG PH (T) 7.147 (7.350-7.450); ABG PO2 (T) 83.3 mmHg (83-108); ALLEN'S TEST Positive; FCOHb 0.3 % (0.5-1.5); FMetHb 0.1 % (0.3-1.12); FO2Hb 94.5 % (94-100); MINUTE VOLUME 12 L/min; PATIENT TEMPERATURE 37.1; RESPIRATORY RATE 30 b/min; RESPIRATORY RATE (OBSERVED) 30 b/min; TOTAL HEMOGLOBIN 9.8 G/dl (14.0-18.0)
[2018-01-31] MEDS ORDERED: LORazepam 2 mg/ml vial IV PRN (12:00)
[2018-01-31 15:00] LABS: PARTIAL THROMBOPLASTIN TIME 35 SECONDS (22-32)
[2018-01-31] MEDS: cefepime inj. 1 GM in dextrose 5%-water 50ml 50 ML IV SCH (17:41)
[2018-01-31] MEDS: sennosides 8.6mg tablet PO SCH (20:07)
[2018-01-31] MEDS ORDERED: lisinopril 20mg tablet PO ONE (22:20)
[2018-02-01] VITALS (24 sets, daily range): BP systolic 124–236; BP diastolic 70–99
[2018-02-01] MEDS ORDERED: hydrALAZINE 20mg/ml inj. IV ONE (00:35)
[2018-02-01 03:27] LABS: BASOPHILS # (AUTO) 0.2 X10'3 (0-0.2); EOSINOPHILS # (AUTO) 0.3 X10'3 (0-0.9); EOSINOPHILS % (AUTO) 1.8 % (0-6); HEMATOCRIT 30.4 % (42.0-52.0); HEMOGLOBIN 10.2 g/dl (14.0-17.9); LYMPHOCYTES % (AUTO) 5.5 % (21-51); MEAN CORPUSCULAR HEMOGLOBIN 28.6 PG (27.0-31.0); MEAN CORPUSCULAR HGB CONC 33.5 % (33.0-36.5); MEAN CORPUSCULAR VOLUME 85.2 FL (78-98); MEAN PLATELET VOLUME 7.9 FL (7.4-10.4); MONOCYTES # (AUTO) 1.3 X10'3 (0-0.9); MONOCYTES % (AUTO) 6.7 % (2-12); PLATELET COUNT 578 X10'3 (140-440); RED BLOOD COUNT 3.56 X10'6 (4.70-6.10); RED CELL DISTRIBUTION WIDTH 15.9 % (11.5-14.5); WHITE BLOOD COUNT 18.8 X10'3 (4.5-11.0)
[2018-02-01 03:38] LABS: ALBUMIN 1.9 G/DL (3.4-5.0); ANION GAP 15 (8-16); BLOOD UREA NITROGEN 52 MG/DL (7-18); BUN/CREATININE RATIO 10.4 (5.4-32.0); CALCIUM 8.5 MG/DL (8.5-10.1); CHLORIDE 107 MMOL/L (99-107); CREATININE 4.98 MG/DL (0.60-1.10); GLUCOSE 122 MG/DL (70-104); POTASSIUM 3.2 MMOL/L (3.5-5.1); SODIUM 146 MMOL/L (135-145); TOTAL CARBON DIOXIDE 23.6 MMOL/L (24-32); eGFR 12 ML/MIN
[2018-02-01] MEDS: sodium chloride 0.45% 1,000 ML IV SCH ×3 (04:24→12:20)
[2018-02-01] MEDS ORDERED: Potassium Cl inj 40 MEQ in normal saline 1000ml 980 ML IV SCH (08:55)
[2018-02-01] MEDS ORDERED: potassium Cl 40MEQ/NS 500ml 500 ML IV PRN ×3 (09:10→18:50)
[2018-02-01] MEDS: hydrALAZINE 20mg/ml inj. IV PRN ×2 (09:17→19:40)
[2018-02-01] MEDS ORDERED: multivitamin oral liquid (Certavite) 5ml cup PO SCH (10:02)
[2018-02-01] MEDS ORDERED: acetaminophen 325mg tablet CORPAK PRN (10:03)
[2018-02-01] MEDS ORDERED: aspirin 325mg tablet CORPAK ONE (10:35)
[2018-02-01] MEDS ORDERED: lisinopril 20mg tablet CORPAK ONE (10:35)
[2018-02-01] MEDS ORDERED: HYDROchlorothiazide 12.5mg capsule CORPAK ONE (10:35)
[2018-02-01] MEDS ORDERED: celeCOXIB 100mg capsule CORPAK ONE (10:35)
[2018-02-01] MEDS: ascorbic acid 500mg tablet PO SCH (10:51)
[2018-02-01] MEDS: atorvastatin 20mg tablet PO SCH (10:51)
[2018-02-01] MEDS: gabapentin 100mg capsule PO SCH (10:52)
[2018-02-01] MEDS: amLODIPine 5mg tablet PO SCH (10:52)
[2018-02-01] MEDS: lactobacillus rhamnosus 10,000 MMU CELLS/CAPSULE PO SCH (10:55)
[2018-02-01] MEDS: NUT.TX.GLUC.INTOLER,LAC-FR,REG (BOOST GLUCOSE CONTROL) 237 ML CORPAK SCH ×2 (12:22→18:00)
[2018-02-01] MEDS: methylnaltrexone br 12mg/0.6ml inj***SubQ only SQ SCH (12:24)
[2018-02-01] MEDS: gabapentin 100mg capsule CORPAK SCH ×2 (15:00→20:32)
[2018-02-01] MEDS: cefepime inj. 1 GM in dextrose 5%-water 50ml 50 ML IV SCH (17:27)
[2018-02-01] MEDS: morphine 4 MG/ML inj SYRINge IV PRN (17:28)
[2018-02-01] MEDS ORDERED: potassium Cl 40MEQ/250ML bag 250 ML IV PRN (18:50)
[2018-02-01] MEDS ORDERED: potassium Cl 20 mEq SR tablet PO PRN ×2 (18:50)
[2018-02-01] MEDS: lactobacillus rhamnosus 10,000 MMU CELLS/CAPSULE CORPAK SCH (20:25)
[2018-02-01] MEDS: celeCOXIB 100mg capsule CORPAK SCH (20:25)
[2018-02-01] MEDS: sennosides 8.6mg tablet CORPAK SCH (20:26)
[2018-02-01] MEDS: ascorbic acid 500mg tablet CORPAK SCH (20:26)
[2018-02-01] MEDS: HYDROcodone/acetaminophen 10/325mg tab PO PRN (20:27)
[2018-02-02] VITALS (23 sets, daily range): BP systolic 140–180; BP diastolic 70–96
[2018-02-02] MEDS: sodium chloride 0.45% 1,000 ML IV SCH ×2 (01:34→18:10)
[2018-02-02 02:28] LABS: ALBUMIN 1.8 G/DL (3.4-5.0); ANION GAP 6 (8-16); BASOPHILS % (AUTO) 0.2 % (0-1); BLOOD UREA NITROGEN 55 MG/DL (7-18); BUN/CREATININE RATIO 15.6 (5.4-32.0); CALCIUM 8.5 MG/DL (8.5-10.1); CHLORIDE 110 MMOL/L (99-107); CREATININE 3.53 MG/DL (0.60-1.10); EOSINOPHILS # (AUTO) 0.5 X10'3 (0-0.9); EOSINOPHILS % (AUTO) 3.2 % (0-6); GLUCOSE 155 MG/DL (70-104); HEMATOCRIT 29.3 % (42.0-52.0); HEMOGLOBIN 9.6 g/dl (14.0-17.9); LYMPHOCYTES # (AUTO) 1.3 X10'3 (1.1-4.8); LYMPHOCYTES % (AUTO) 7.4 % (21-51); MEAN CORPUSCULAR HEMOGLOBIN 28.2 PG (27.0-31.0); MEAN CORPUSCULAR HGB CONC 32.7 % (33.0-36.5); MEAN CORPUSCULAR VOLUME 86.2 FL (78-98); MEAN PLATELET VOLUME 7.7 FL (7.4-10.4); MONOCYTES # (AUTO) 1.1 X10'3 (0-0.9); MONOCYTES % (AUTO) 6.7 % (2-12); NEUTROPHILS # (AUTO) 14.2 X10'3 (1.8-7.7); NEUTROPHILS % (AUTO) 82.5 % (42-75); PLATELET COUNT 644 X10'3 (140-440); POTASSIUM 3.2 MMOL/L (3.5-5.1); RED CELL DISTRIBUTION WIDTH 16.3 % (11.5-14.5); SODIUM 145 MMOL/L (135-145); TOTAL CARBON DIOXIDE 28.7 MMOL/L (24-32); WHITE BLOOD COUNT 17.2 X10'3 (4.5-11.0); eGFR 17 ML/MIN
[2018-02-02] MEDS ORDERED: potassium Cl 40MEQ/250ML bag 250 ML IV ONE (03:28)
[2018-02-02 04:15] LABS: GIANT PLATELET FEW; LARGE PLATELETS FEW; PLATELET ESTIMATE INCREASED
[2018-02-02] MEDS: HYDROcodone/acetaminophen 5mg/325mg tablet PO PRN (05:14)
[2018-02-02] MEDS: NUT.TX.GLUC.INTOLER,LAC-FR,REG (BOOST GLUCOSE CONTROL) 237 ML CORPAK SCH ×3 (08:00→18:00)
[2018-02-02] MEDS: HYDROchlorothiazide 12.5mg capsule CORPAK SCH (08:00)
[2018-02-02] MEDS: celeCOXIB 100mg capsule CORPAK SCH ×2 (08:37→21:51)
[2018-02-02] MEDS: multivitamin oral liquid (Certavite) 5ml cup CORPAK SCH (08:37)
[2018-02-02] MEDS: lisinopril 20mg tablet CORPAK SCH (08:38)
[2018-02-02] MEDS: gabapentin 100mg capsule CORPAK SCH ×3 (08:38→21:51)
[2018-02-02] MEDS: aspirin 325mg tablet CORPAK SCH (08:38)
[2018-02-02] MEDS: ascorbic acid 500mg tablet CORPAK SCH ×2 (08:39→21:50)
[2018-02-02] MEDS: atorvastatin 20mg tablet CORPAK SCH (08:39)
[2018-02-02] MEDS: amLODIPine 5mg tablet CORPAK SCH (08:39)
[2018-02-02] MEDS: lactobacillus rhamnosus 10,000 MMU CELLS/CAPSULE CORPAK SCH ×2 (08:40→21:51)
[2018-02-02] MEDS: cefepime inj. 1 GM in dextrose 5%-water 50ml 50 ML IV SCH (18:09)
[2018-02-02] MEDS: diphenhydrAMINE 25mg capsule PO PRN (21:50)
[2018-02-02] MEDS: sennosides 8.6mg tablet CORPAK SCH (21:51)
[2018-02-03] VITALS (24 sets, daily range): BP systolic 122–188; BP diastolic 71–108
[2018-02-03] MEDS: HYDROcodone/acetaminophen 10/325mg tab PO PRN ×2 (00:33→20:54)
[2018-02-03] MEDS: hydrALAZINE 20mg/ml inj. IV PRN (01:57)
[2018-02-03 02:22] LABS: BASOPHILS # (AUTO) 0.1 X10'3 (0-0.2); BASOPHILS % (AUTO) 0.8 % (0-1); EOSINOPHILS # (AUTO) 0.7 X10'3 (0-0.9); EOSINOPHILS % (AUTO) 4.2 % (0-6); HEMATOCRIT 30.9 % (42.0-52.0); HEMOGLOBIN 10.1 g/dl (14.0-17.9); LYMPHOCYTES # (AUTO) 1.5 X10'3 (1.1-4.8); LYMPHOCYTES % (AUTO) 9.2 % (21-51); MEAN CORPUSCULAR HEMOGLOBIN 28.1 PG (27.0-31.0); MEAN CORPUSCULAR HGB CONC 32.6 % (33.0-36.5); MEAN CORPUSCULAR VOLUME 86.4 FL (78-98); MEAN PLATELET VOLUME 7.7 FL (7.4-10.4); MONOCYTES # (AUTO) 1.1 X10'3 (0-0.9); MONOCYTES % (AUTO) 7.2 % (2-12); NEUTROPHILS # (AUTO) 12.5 X10'3 (1.8-7.7); NEUTROPHILS % (AUTO) 78.6 % (42-75); PLATELET COUNT 766 X10'3 (140-440); RED BLOOD COUNT 3.58 X10'6 (4.70-6.10); RED CELL DISTRIBUTION WIDTH 16.4 % (11.5-14.5); WHITE BLOOD COUNT 15.9 X10'3 (4.5-11.0)
[2018-02-03 02:24] LABS: ALBUMIN 1.8 G/DL (3.4-5.0); ANION GAP 7 (8-16); BLOOD UREA NITROGEN 51 MG/DL (7-18); BUN/CREATININE RATIO 20.2 (5.4-32.0); CALCIUM 8.4 MG/DL (8.5-10.1); CHLORIDE 110 MMOL/L (99-107); CREATININE 2.53 MG/DL (0.60-1.10); GLUCOSE 152 MG/DL (70-104); POTASSIUM 3.5 MMOL/L (3.5-5.1); SODIUM 146 MMOL/L (135-145); TOTAL CARBON DIOXIDE 29.2 MMOL/L (24-32); eGFR 26 ML/MIN
[2018-02-03 03:22] LABS: MAGNESIUM 1.6 MG/DL (1.5-2.4)
[2018-02-03 03:40] LABS: ABG BASE EXCESS 4.5 mmol/L (-2.0-3.0); ABG HCO3 29.7 mmol/L (22.0-26.0); ABG OXYGEN SATURATION 95.7 % (95-98); ABG PCO2 (T) 46.9 mmHg (35.0-48.0); ABG PH (T) 7.419 (7.350-7.450); ABG PO2 (T) 79.4 mmHg (83-108); ALLEN'S TEST Positive; FCOHb 0.3 % (0.5-1.5); FLOW 3 L/min; FMetHb 0.3 % (0.3-1.12); FO2Hb 95.1 % (94-100); PATIENT TEMPERATURE 36.9; TOTAL HEMOGLOBIN 10.6 G/dl (14.0-18.0)
[2018-02-03] MEDS: aspirin 325mg tablet CORPAK SCH (07:44)
[2018-02-03] MEDS: multivitamin oral liquid (Certavite) 5ml cup CORPAK SCH (07:44)
[2018-02-03] MEDS: HYDROchlorothiazide 12.5mg capsule CORPAK SCH (07:44)
[2018-02-03] MEDS: gabapentin 100mg capsule CORPAK SCH ×3 (07:44→20:53)
[2018-02-03] MEDS: ascorbic acid 500mg tablet CORPAK SCH ×2 (07:44→20:53)
[2018-02-03] MEDS: celeCOXIB 100mg capsule CORPAK SCH (07:44)
[2018-02-03] MEDS: atorvastatin 20mg tablet CORPAK SCH (07:44)
[2018-02-03] MEDS: amLODIPine 5mg tablet CORPAK SCH (07:45)
[2018-02-03] MEDS: lactobacillus rhamnosus 10,000 MMU CELLS/CAPSULE CORPAK SCH ×2 (07:45→20:52)
[2018-02-03] MEDS: lisinopril 20mg tablet CORPAK SCH (07:45)
[2018-02-03] MEDS: methylnaltrexone br 12mg/0.6ml inj***SubQ only SQ SCH (07:46)
[2018-02-03] MEDS: NUT.TX.GLUC.INTOLER,LAC-FR,REG (BOOST GLUCOSE CONTROL) 237 ML CORPAK SCH ×3 (08:00→18:00)
[2018-02-03] MEDS: cefepime inj. 1 GM in dextrose 5%-water 50ml 50 ML IV SCH (17:28)
[2018-02-03] MEDS: sennosides 8.6mg tablet CORPAK SCH (20:53)
[2018-02-03] MEDS: diphenhydrAMINE 25mg capsule PO PRN (20:54)
[2018-02-04] VITALS (24 sets, daily range): BP systolic 130–181; BP diastolic 66–85
[2018-02-04 02:38] LABS: BASOPHILS # (AUTO) 0.1 X10'3 (0-0.2); BASOPHILS % (AUTO) 0.4 % (0-1); EOSINOPHILS # (AUTO) 0.7 X10'3 (0-0.9); EOSINOPHILS % (AUTO) 4.7 % (0-6); HEMATOCRIT 28.5 % (42.0-52.0); HEMOGLOBIN 9.3 g/dl (14.0-17.9); LYMPHOCYTES # (AUTO) 1.7 X10'3 (1.1-4.8); LYMPHOCYTES % (AUTO) 11.8 % (21-51); MEAN CORPUSCULAR HEMOGLOBIN 28.3 PG (27.0-31.0); MEAN CORPUSCULAR HGB CONC 32.7 % (33.0-36.5); MEAN CORPUSCULAR VOLUME 86.5 FL (78-98); MEAN PLATELET VOLUME 7.7 FL (7.4-10.4); MONOCYTES # (AUTO) 1.1 X10'3 (0-0.9); MONOCYTES % (AUTO) 7.5 % (2-12); NEUTROPHILS # (AUTO) 11.1 X10'3 (1.8-7.7); NEUTROPHILS % (AUTO) 75.6 % (42-75); PLATELET COUNT 771 X10'3 (140-440); RED BLOOD COUNT 3.29 X10'6 (4.70-6.10); RED CELL DISTRIBUTION WIDTH 16.8 % (11.5-14.5); WHITE BLOOD COUNT 14.7 X10'3 (4.5-11.0)
[2018-02-04 03:53] LABS: ALANINE AMINOTRANSFERASE 40 U/L (12-78); ALBUMIN 1.7 G/DL (3.4-5.0); ALBUMIN/GLOBULIN RATIO 0.4 (1.1-1.5); ALKALINE PHOSPHATASE 85 IU/L (46-116); ANION GAP 5 (8-16); ASPARTATE AMINO TRANSFERASE 81 U/L (10-37); BILIRUBIN,TOTAL 0.3 MG/DL (0.1-1.0); BLOOD UREA NITROGEN 53 MG/DL (7-18); BUN/CREATININE RATIO 27.5 (5.4-32.0); CALCIUM 8.4 MG/DL (8.5-10.1); CHLORIDE 109 MMOL/L (99-107); CREATININE 1.93 MG/DL (0.60-1.10); GLUCOSE 138 MG/DL (70-104); MAGNESIUM 1.5 MG/DL (1.5-2.4); POTASSIUM 3.5 MMOL/L (3.5-5.1); SODIUM 147 MMOL/L (135-145); eGFR 35 ML/MIN
[2018-02-04] MEDS: sodium chloride 0.45% 1,000 ML IV SCH (05:52)
[2018-02-04] MEDS: NUT.TX.GLUC.INTOLER,LAC-FR,REG (BOOST GLUCOSE CONTROL) 237 ML CORPAK SCH ×3 (08:00→20:21)
[2018-02-04] MEDS: gabapentin 100mg capsule CORPAK SCH ×3 (09:38→20:21)
[2018-02-04] MEDS: ascorbic acid 500mg tablet CORPAK SCH (09:39)
[2018-02-04] MEDS: lactobacillus rhamnosus 10,000 MMU CELLS/CAPSULE CORPAK SCH ×2 (09:39→20:26)
[2018-02-04] MEDS: amLODIPine 5mg tablet CORPAK SCH (09:39)
[2018-02-04] MEDS: lisinopril 20mg tablet CORPAK SCH (09:39)
[2018-02-04] MEDS: atorvastatin 20mg tablet CORPAK SCH (09:39)
[2018-02-04] MEDS: HYDROchlorothiazide 12.5mg capsule CORPAK SCH (09:39)
[2018-02-04] MEDS: multivitamin oral liquid (Certavite) 5ml cup CORPAK SCH (09:40)
[2018-02-04] MEDS: aspirin 325mg tablet CORPAK SCH (09:40)
[2018-02-04] MEDS: HYDROcodone/acetaminophen 5mg/325mg tablet PO PRN (09:56)
[2018-02-04 09:57] LABS: PHOSPHORUS 3.2 MG/DL (2.3-4.5)
[2018-02-04] MEDS: apixaban 5mg tablet PO SCH ×2 (11:26→20:21)
[2018-02-04] MEDS: cefepime inj. 1 GM in dextrose 5%-water 50ml 50 ML IV SCH (17:32)
[2018-02-04] MEDS: HYDROcodone/acetaminophen 10/325mg tab PO PRN (20:21)
[2018-02-04] MEDS: diphenhydrAMINE 25mg capsule PO PRN (20:21)
[2018-02-04] MEDS: sennosides 8.6mg tablet CORPAK SCH (20:22)
[2018-02-05] VITALS (24 sets, daily range): BP systolic 129–159; BP diastolic 66–85
[2018-02-05 02:24] LABS: BASOPHILS # (AUTO) 0.2 X10'3 (0-0.2); BASOPHILS % (AUTO) 1.1 % (0-1); EOSINOPHILS # (AUTO) 0.6 X10'3 (0-0.9); EOSINOPHILS % (AUTO) 3.8 % (0-6); HEMATOCRIT 26.9 % (42.0-52.0); HEMOGLOBIN 8.7 g/dl (14.0-17.9); LYMPHOCYTES # (AUTO) 1.3 X10'3 (1.1-4.8); LYMPHOCYTES % (AUTO) 8.7 % (21-51); MEAN CORPUSCULAR HEMOGLOBIN 28.5 PG (27.0-31.0); MEAN CORPUSCULAR HGB CONC 32.5 % (33.0-36.5); MEAN CORPUSCULAR VOLUME 87.5 FL (78-98); MEAN PLATELET VOLUME 7.4 FL (7.4-10.4); MONOCYTES # (AUTO) 1.2 X10'3 (0-0.9); MONOCYTES % (AUTO) 7.9 % (2-12); NEUTROPHILS # (AUTO) 11.5 X10'3 (1.8-7.7); NEUTROPHILS % (AUTO) 78.5 % (42-75); PLATELET COUNT 764 X10'3 (140-440); RED BLOOD COUNT 3.07 X10'6 (4.70-6.10); RED CELL DISTRIBUTION WIDTH 16.6 % (11.5-14.5); WHITE BLOOD COUNT 14.7 X10'3 (4.5-11.0)
[2018-02-05 02:42] LABS: ALANINE AMINOTRANSFERASE 60 U/L (12-78); ALBUMIN 1.8 G/DL (3.4-5.0); ALBUMIN/GLOBULIN RATIO 0.4 (1.1-1.5); ALKALINE PHOSPHATASE 80 IU/L (46-116); ANION GAP 5 (8-16); ASPARTATE AMINO TRANSFERASE 109 U/L (10-37); BILIRUBIN,TOTAL 0.3 MG/DL (0.1-1.0); BLOOD UREA NITROGEN 49 MG/DL (7-18); BUN/CREATININE RATIO 31.2 (5.4-32.0); CALCIUM 8.8 MG/DL (8.5-10.1); CHLORIDE 109 MMOL/L (99-107); CREATININE 1.57 MG/DL (0.60-1.10); GLUCOSE 111 MG/DL (70-104); MAGNESIUM 1.4 MG/DL (1.5-2.4); PHOSPHORUS 3.7 MG/DL (2.3-4.5); POTASSIUM 3.4 MMOL/L (3.5-5.1); SODIUM 150 MMOL/L (135-145); TOTAL PROTEIN 6.2 G/DL (6.4-8.2); eGFR 45 ML/MIN
[2018-02-05] MEDS ORDERED: magnesium 2GM in 50ml NS 50 ML IV PRN (05:15)
[2018-02-05] MEDS ORDERED: magnesium 4gm in 100ml NS 100 ML IV PRN (05:15)
[2018-02-05] MEDS ORDERED: magnesium Cl slow-release 64mg tablet PO PRN (05:15)
[2018-02-05] MEDS: NUT.TX.GLUC.INTOLER,LAC-FR,REG (BOOST GLUCOSE CONTROL) 237 ML CORPAK SCH ×3 (08:00→18:01)
[2018-02-05] MEDS: multivitamin oral liquid (Certavite) 5ml cup CORPAK SCH (08:05)
[2018-02-05] MEDS: apixaban 5mg tablet PO SCH ×2 (08:05→19:49)
[2018-02-05] MEDS: lactobacillus rhamnosus 10,000 MMU CELLS/CAPSULE CORPAK SCH ×2 (08:06→19:49)
[2018-02-05] MEDS: lisinopril 20mg tablet CORPAK SCH (08:06)
[2018-02-05] MEDS: aspirin 325mg tablet CORPAK SCH (08:06)
[2018-02-05] MEDS: atorvastatin 20mg tablet CORPAK SCH (08:06)
[2018-02-05] MEDS: HYDROchlorothiazide 12.5mg capsule CORPAK SCH (08:06)
[2018-02-05] MEDS: amLODIPine 5mg tablet CORPAK SCH (08:06)
[2018-02-05] MEDS: gabapentin 100mg capsule CORPAK SCH ×3 (08:06→19:49)
[2018-02-05] MEDS: ascorbic acid 500mg tablet CORPAK SCH (08:09)
[2018-02-05] MEDS: potassium Cl 40MEQ/250ML bag 250 ML IV PRN ×2 (08:52→23:35)
[2018-02-05] MEDS: cefepime inj. 1 GM in dextrose 5%-water 50ml 50 ML IV SCH (17:40)
[2018-02-05 19:47] LABS: ALANINE AMINOTRANSFERASE 92 U/L (12-78); ALBUMIN 2.1 G/DL (3.4-5.0); ALBUMIN/GLOBULIN RATIO 0.5 (1.1-1.5); ALKALINE PHOSPHATASE 81 IU/L (46-116); ANION GAP 7 (8-16); ASPARTATE AMINO TRANSFERASE 136 U/L (10-37); BILIRUBIN,TOTAL 0.4 MG/DL (0.1-1.0); BLOOD UREA NITROGEN 49 MG/DL (7-18); CALCIUM 9.1 MG/DL (8.5-10.1); CHLORIDE 109 MMOL/L (99-107); CREATININE 1.44 MG/DL (0.60-1.10); GLUCOSE 122 MG/DL (70-104); MAGNESIUM 1.9 MG/DL (1.5-2.4); POTASSIUM 3.4 MMOL/L (3.5-5.1); SODIUM 150 MMOL/L (135-145); TOTAL CARBON DIOXIDE 34.4 MMOL/L (24-32); TOTAL PROTEIN 6.6 G/DL (6.4-8.2); eGFR 49 ML/MIN
[2018-02-05] MEDS: diphenhydrAMINE 25mg capsule PO PRN (19:49)
[2018-02-05] MEDS: sennosides 8.6mg tablet CORPAK SCH (19:49)
[2018-02-05] MEDS: HYDROcodone/acetaminophen 10/325mg tab PO PRN (19:50)
[2018-02-05] MEDS ORDERED: potassium Cl 40MEQ/250ML bag 250 ML IV ONE (23:24)
[2018-02-06] VITALS (19 sets, daily range): BP systolic 108–161; BP diastolic 60–84
[2018-02-06] MEDS: HYDROcodone/acetaminophen 10/325mg tab PO PRN ×3 (01:30→22:01)
[2018-02-06] MEDS ORDERED: morphine 4 MG/ML inj SYRINge IV ONE (02:50)
[2018-02-06 02:52] LABS: BASOPHILS # (AUTO) 0.1 X10'3 (0-0.2); BASOPHILS % (AUTO) 0.6 % (0-1); EOSINOPHILS # (AUTO) 0.8 X10'3 (0-0.9); HEMATOCRIT 25.1 % (42.0-52.0); HEMOGLOBIN 8.1 g/dl (14.0-17.9); LYMPHOCYTES # (AUTO) 1.6 X10'3 (1.1-4.8); MEAN CORPUSCULAR HEMOGLOBIN 28.4 PG (27.0-31.0); MEAN CORPUSCULAR HGB CONC 32.3 % (33.0-36.5); MEAN CORPUSCULAR VOLUME 87.8 FL (78-98); MEAN PLATELET VOLUME 7.6 FL (7.4-10.4); MONOCYTES # (AUTO) 1.5 X10'3 (0-0.9); MONOCYTES % (AUTO) 9.1 % (2-12); NEUTROPHILS # (AUTO) 12.1 X10'3 (1.8-7.7); NEUTROPHILS % (AUTO) 75.3 % (42-75); PLATELET COUNT 764 X10'3 (140-440); RED BLOOD COUNT 2.86 X10'6 (4.70-6.10); RED CELL DISTRIBUTION WIDTH 17.1 % (11.5-14.5); WHITE BLOOD COUNT 16.1 X10'3 (4.5-11.0)
[2018-02-06] MEDS ORDERED: morphine 4 MG/ML inj SYRINge ONE (02:55)
[2018-02-06 03:08] LABS: ALANINE AMINOTRANSFERASE 84 U/L (12-78); ALBUMIN/GLOBULIN RATIO 0.5 (1.1-1.5); ALKALINE PHOSPHATASE 73 IU/L (46-116); ANION GAP 4 (8-16); ASPARTATE AMINO TRANSFERASE 109 U/L (10-37); BILIRUBIN,TOTAL 0.3 MG/DL (0.1-1.0); BLOOD UREA NITROGEN 47 MG/DL (7-18); BUN/CREATININE RATIO 32.6 (5.4-32.0); CALCIUM 8.9 MG/DL (8.5-10.1); CHLORIDE 110 MMOL/L (99-107); CREATININE 1.44 MG/DL (0.60-1.10); GLUCOSE 114 MG/DL (70-104); MAGNESIUM 1.8 MG/DL (1.5-2.4); PHOSPHORUS 3.8 MG/DL (2.3-4.5); POTASSIUM 3.8 MMOL/L (3.5-5.1); SODIUM 149 MMOL/L (135-145); TOTAL CARBON DIOXIDE 35.4 MMOL/L (24-32); TOTAL PROTEIN 6.2 G/DL (6.4-8.2); eGFR 49 ML/MIN
[2018-02-06] MEDS: sodium chloride 0.45% 1,000 ML IV SCH (06:17)
[2018-02-06] MEDS: multivitamin oral liquid (Certavite) 5ml cup CORPAK SCH (08:36)
[2018-02-06] MEDS: lisinopril 20mg tablet CORPAK SCH (08:37)
[2018-02-06] MEDS: apixaban 5mg tablet PO SCH ×2 (08:37→21:04)
[2018-02-06] MEDS: ascorbic acid 500mg tablet CORPAK SCH (08:37)
[2018-02-06] MEDS: atorvastatin 20mg tablet CORPAK SCH (08:37)
[2018-02-06] MEDS: HYDROchlorothiazide 12.5mg capsule CORPAK SCH (08:37)
[2018-02-06] MEDS: lactobacillus rhamnosus 10,000 MMU CELLS/CAPSULE CORPAK SCH (08:38)
[2018-02-06] MEDS: aspirin 325mg tablet CORPAK SCH (08:38)
[2018-02-06] MEDS: amLODIPine 5mg tablet CORPAK SCH (08:38)
[2018-02-06] MEDS: gabapentin 100mg capsule CORPAK SCH ×2 (08:38→14:27)
[2018-02-06] MEDS: NUT.TX.GLUC.INTOLER,LAC-FR,REG (BOOST GLUCOSE CONTROL) 237 ML CORPAK SCH ×2 (08:39→13:00)
[2018-02-06] MEDS: HYDROcodone/acetaminophen 5mg/325mg tablet PO PRN (09:58)
[2018-02-06] MEDS ORDERED: acetaminophen 325mg tablet PO PRN (19:03)
[2018-02-06] MEDS ORDERED: aspirin 325mg tablet PO SCH (19:04)
[2018-02-06] MEDS: sennosides 8.6mg tablet PO SCH (21:00)
[2018-02-06] MEDS: gabapentin 100mg capsule PO SCH (21:04)
[2018-02-06] MEDS: lactobacillus rhamnosus 10,000 MMU CELLS/CAPSULE PO SCH (21:04)
[2018-02-07 06:00] VITALS: BP 137/78
[2018-02-07 07:39] VITALS: BP 117/71
[2018-02-07] MEDS: apixaban 5mg tablet PO SCH ×2 (07:42→20:08)
[2018-02-07] MEDS: lactobacillus rhamnosus 10,000 MMU CELLS/CAPSULE PO SCH ×2 (07:42→20:08)
[2018-02-07] MEDS: HYDROchlorothiazide 12.5mg capsule PO SCH (07:42)
[2018-02-07] MEDS: atorvastatin 20mg tablet PO SCH (07:42)
[2018-02-07] MEDS: ascorbic acid 500mg tablet PO SCH (07:43)
[2018-02-07] MEDS: amLODIPine 5mg tablet PO SCH (07:43)
[2018-02-07] MEDS: lisinopril 20mg tablet PO SCH (07:43)
[2018-02-07] MEDS: gabapentin 100mg capsule PO SCH ×3 (07:43→20:08)
[2018-02-07] MEDS: NUT.TX.GLUC.INTOLER,LAC-FR,REG (BOOST GLUCOSE CONTROL) 237 ML PO SCH ×2 (08:00→12:51)
[2018-02-07] MEDS: multivitamin oral liquid (Certavite) 5ml cup PO SCH (08:00)
[2018-02-07 10:00] VITALS: BP 148/70
[2018-02-07 18:00] VITALS: BP 141/79
[2018-02-07] MEDS: Protein Smoothie (high protein) 240ml (8oz) cup PO SCH (18:00)
[2018-02-07] MEDS: sennosides 8.6mg tablet PO SCH (20:08)
[2018-02-07] MEDS: sodium chloride 0.45% 1,000 ML IV SCH (20:11)
[2018-02-07 22:00] VITALS: BP 121/73
[2018-02-08] VITALS (11 sets, daily range): BP systolic 116–149; BP diastolic 60–78
[2018-02-08 05:50] LABS: BASOPHILS # (AUTO) 0.1 X10'3 (0-0.2); BASOPHILS % (AUTO) 0.7 % (0-1); EOSINOPHILS # (AUTO) 0.5 X10'3 (0-0.9); EOSINOPHILS % (AUTO) 3.5 % (0-6); HEMOGLOBIN 7.2 g/dl (14.0-17.9); LYMPHOCYTES # (AUTO) 1.8 X10'3 (1.1-4.8); LYMPHOCYTES % (AUTO) 12.1 % (21-51); MEAN CORPUSCULAR HEMOGLOBIN 28.3 PG (27.0-31.0); MEAN CORPUSCULAR HGB CONC 32.8 % (33.0-36.5); MEAN CORPUSCULAR VOLUME 86.2 FL (78-98); MEAN PLATELET VOLUME 7.9 FL (7.4-10.4); MONOCYTES # (AUTO) 1.2 X10'3 (0-0.9); MONOCYTES % (AUTO) 8.1 % (2-12); NEUTROPHILS % (AUTO) 75.6 % (42-75); PLATELET COUNT 751 X10'3 (140-440); RED BLOOD COUNT 2.54 X10'6 (4.70-6.10); RED CELL DISTRIBUTION WIDTH 17.6 % (11.5-14.5); WHITE BLOOD COUNT 14.6 X10'3 (4.5-11.0)
[2018-02-08 05:55] LABS: HEMATOCRIT 21.9 % (42.0-52.0)
[2018-02-08 06:05] LABS: ALANINE AMINOTRANSFERASE 85 U/L (12-78); ALBUMIN 2.3 G/DL (3.4-5.0); ALBUMIN/GLOBULIN RATIO 0.5 (1.1-1.5); ALKALINE PHOSPHATASE 78 IU/L (46-116); ANION GAP 8 (8-16); ASPARTATE AMINO TRANSFERASE 101 U/L (10-37); BILIRUBIN,TOTAL 0.4 MG/DL (0.1-1.0); BLOOD UREA NITROGEN 41 MG/DL (7-18); BUN/CREATININE RATIO 28.5 (5.4-32.0); CALCIUM 8.9 MG/DL (8.5-10.1); CHLORIDE 109 MMOL/L (99-107); CREATININE 1.44 MG/DL (0.60-1.10); GLUCOSE 128 MG/DL (70-104); POTASSIUM 3.6 MMOL/L (3.5-5.1); SODIUM 151 MMOL/L (135-145); TOTAL CARBON DIOXIDE 34.3 MMOL/L (24-32); TOTAL PROTEIN 7.1 G/DL (6.4-8.2); eGFR 49 ML/MIN
[2018-02-08] MEDS: lactobacillus rhamnosus 10,000 MMU CELLS/CAPSULE PO SCH (07:52)
[2018-02-08] MEDS: multivitamin oral liquid (Certavite) 5ml cup PO SCH (07:52)
[2018-02-08] MEDS: apixaban 5mg tablet PO SCH (07:53)
[2018-02-08] MEDS: HYDROchlorothiazide 12.5mg capsule PO SCH (07:53)
[2018-02-08] MEDS: lisinopril 20mg tablet PO SCH (07:53)
[2018-02-08] MEDS: atorvastatin 20mg tablet PO SCH (07:53)
[2018-02-08] MEDS: gabapentin 100mg capsule PO SCH ×2 (07:53→13:12)
[2018-02-08] MEDS: ascorbic acid 500mg tablet PO SCH (07:53)
[2018-02-08] MEDS: amLODIPine 5mg tablet PO SCH (07:53)
[2018-02-08] MEDS: Protein Smoothie (high protein) 240ml (8oz) cup PO SCH ×2 (07:56→13:11)
== END 2018-02-08 17:10 | DRG 466 ==
LOC: PAS IN 09:39 → EDSTATUS 12:30 → ORTHO 4S 20:00 → ICU 2S 01-27 01:11 → ORTHO 4S 02-06 17:40
PROVIDERS: ADMIT Orthopaedic Surgery; ATTEND Orthopaedic Surgery
PROC: 0SPD08Z Removal of Spacer from Left Knee Joint, Open Approach (ICD-10-PCS; 2018-01-25)
PROC: 0QPH04Z Removal of Internal Fixation Device from Left Tibia, Open Approach (ICD-10-PCS; 2018-01-25)
PROC: 0SRD0J9 Replacement of Left Knee Joint with Synthetic Substitute, Cemented, Open Approach (ICD-10-PCS; principal; 2018-01-25 11:50)
PROC: 02H633Z Insertion of Infusion Device into Right Atrium, Percutaneous Approach (ICD-10-PCS; 2018-01-27)
PROC: 5A09457 Assistance with Respiratory Ventilation, 24-96 Consecutive Hours, Continuous Positive Airway Pressure (ICD-10-PCS; 2018-01-28)
PROC: 30233N1 Transfusion of Nonautologous Red Blood Cells into Peripheral Vein, Percutaneous Approach (ICD-10-PCS; 2018-02-08)
DX: T84.54XA Infection and inflammatory reaction due to internal left knee prosthesis, initial encounter (principal); I21.4 Non-ST elevation (NSTEMI) myocardial infarction; N17.0 Acute kidney failure with tubular necrosis; G93.41 Metabolic encephalopathy; A41.9 Sepsis, unspecified organism; I95.89 Other hypotension; N18.3 Chronic kidney disease, stage 3 (moderate); D62 Acute posthemorrhagic anemia; I82.4Z1 Acute embolism and thrombosis of unspecified deep veins of right distal lower extremity; M21.862 Other specified acquired deformities of left lower leg; E78.5 Hyperlipidemia, unspecified; I12.9 Hypertensive chronic kidney disease with stage 1 through stage 4 chronic kidney disease, or unspecified chronic kidney disease; I25.10 Atherosclerotic heart disease of native coronary artery without angina pectoris; R32 Unspecified urinary incontinence; Y83.8 Other surgical procedures as the cause of abnormal reaction of the patient, or of later complication, without mention of misadventure at the time of the procedure; Z79.82 Long term (current) use of aspirin; Z79.899 Other long term (current) drug therapy; Z78.1 Physical restraint status; Z80.3 Family history of malignant neoplasm of breast; Y92.89 Other specified places as the place of occurrence of the external cause
CPT/HCPCS: 36569; 93306; Z7506; 36415; 36600; 70450; 71045; 73560; 74018; 76937; 80048; 80051; 80053; 80202; 81001; 82330; 82570; 82803; 82948; 83605; 83735; 84100; 84132; 84133; 84134; 84145; 84156; 84300; 84484; 85018; 85025; 85610; 85730; 86885; 86900; 86901; 86920; 87040; 87070; 87075; 87176; 87207; 93005; 93970; 94640; 94660; 94760; 97110; 97116; 97162; 97530; A4315; A4333; A4357; A4649; A6209; A6212; A6213; A6223; A6257; A6258; A6449; A6455; A7000; C1713; C1758; C1776; J0131; J0171; J0330; J0360; J0690; J0692; J0735; J1200; J1644; J1815; J1885; J2060; J2250; J2270; J2274; J2310; J2370; J2405; J2543; J2704; J2765; J2795; J3010; J3370; J3475; J3480; J3490; J7030; J7060; J7120; P9016; P9045; Q0163